=== PATIENT | female | born 1985 | race American Indian/Alaskan Native ===

== ENCOUNTER 2021-07-19 20:33 | Emergency (ER) | payer OTHER, SELFPAY | END 2021-07-20 00:40 | disposition home or self-care (01) | LOC: CSHERS 20:33 | DX: S16.1XXA Strain of muscle, fascia and tendon at neck level, initial encounter (principal); V43.52XA Car driver injured in collision with other type car in traffic accident, initial encounter | CPT/HCPCS: 71045; 72040 ==

== ENCOUNTER 2021-08-27 16:48 | Emergency (ER) | payer SELFPAY | END 2021-08-27 20:25 | disposition home or self-care (01) | LOC: CSHERS 16:48 | DX: I10 Essential (primary) hypertension (principal); R42 Dizziness and giddiness | CPT/HCPCS: 36416; 93005 ==

== ENCOUNTER 2021-08-31 19:37 | Emergency (ER) | payer SELFPAY ==
[2021-08-31] MEDS ORDERED: Acetaminophen 500 MG TAB ONE (21:01)
[2021-08-31 23:18] LABS: Hemoglobin 10.4 g/dL (12.0-15.5); Mean Corpuscular HGB CONC 31.7 g/dL (32.0-36.0); Mean Corpuscular Hemoglobin 23.2 pg (27.0-33.0); Mean Corpuscular Volume 73.1 fl (81.6-98.3); Mean Platelet Volume 9.1 fl (7.4-10.4); Platelet Count 286 10x3/uL (150-450); RBC Distribution Width 17.3 % (11.5-14.5); Red Blood Cell (RBC) Count 4.49 10x6/uL (3.90-5.03); White Blood Cell (WBC) Count 6.9 10x3/uL (3.5-10.5)
[2021-08-31 23:31] LABS: #Eosinphils 0.1 10x3/uL (0.0-0.5); #Monocytes 0.6 10x3/uL (0.0-1.1); #Neutrophils 5.9 10x3/uL (1.5-8.4); %Basophils 0.6 % (0.0-2.0); %Eosinophils 0.7 % (0.0-6.0); %Lymphocytes 3.1 % (18.0-47.0); %Monocytes 8.9 % (0.0-10.0); %Neutrophils 86.1 % (40.0-75.0)
[2021-08-31 23:32] LABS: ALT (SGPT) 13 U/L (8-55); AST (SGOT) 17 U/L (5-34); Albumin 4.5 g/dL (3.5-5.0); Alkaline Phosphatase 54 U/L (40-110); Anion Gap 14 mmol/L (10-20); BUN (Urea Nitrogen) 7 mg/dL (7.0-18.7); Bilirubin, Total 0.3 mg/dL (0.2-1.2); Calc. Creatinine Clearance 0 mL/min (70-130); Calcium 9.2 mg/dL (7.8-10.44); Carbon Dioxide 22 mmol/L (22-29); Chloride 104 mmol/L (98-107); Globulin 3.3 g/dL (2.4-3.5); Glucose 94 mg/dL (70-105); Potassium 3.3 mmol/L (3.5-5.1); Protein, Total 7.8 g/dL (6.0-8.3); Sodium 137 mmol/L (136-145)
[2021-09-01] MEDS ORDERED: Ketorolac Tromethamine 30 MG/ML VIAL ONE (00:07)
[2021-09-01 18:34] LABS: SARS-CoV-2 PCR by NAA DETECTED (NotDetected)
== END 2021-09-01 00:20 | disposition home or self-care (01) ==
LOC: CSHERS 19:37
DX: U07.1 COVID-19 (principal); Z79.899 Other long term (current) drug therapy
CPT/HCPCS: 36415; 71045; 80053; 85025; 85379; 93005; 96374; J1885; U0003; U0005

== ENCOUNTER 2021-09-10 13:22 | Emergency (ER) | payer OTHER, SELFPAY | END 2021-09-10 14:57 | disposition home or self-care (01) | LOC: CSHERS 13:22 | DX: U07.1 COVID-19 (principal) | CPT/HCPCS: 99281 ==

== ENCOUNTER 2022-05-02 08:23 | Emergency (ER) | payer OTHER | END 2022-05-02 08:54 | disposition home or self-care (01) | LOC: CSHERS 08:23 | DX: J02.9 Acute pharyngitis, unspecified (principal) | CPT/HCPCS: 99282 ==